=== PATIENT | female | born 1975 | race Two or more races ===

== ENCOUNTER 2023-03-26 08:47 | Outpatient (CLI) | payer OTHER | END 2023-03-26 08:53 | disposition home or self-care (01) | LOC: SONOGRAMA 08:47 | PROVIDERS: ATTEND Pathology Anatomic Pathology & Clinical Pathology | DX: E04.2 Nontoxic multinodular goiter (principal) ==

== ENCOUNTER 2023-05-21 10:07 | Outpatient (CLI) | payer OTHER | END 2023-05-21 10:11 | disposition home or self-care (01) | LOC: SONOGRAMA 10:07 | PROVIDERS: ATTEND Pathology Anatomic Pathology & Clinical Pathology | DX: D44.0 Neoplasm of uncertain behavior of thyroid gland (principal); E07.9 Disorder of thyroid, unspecified ==